=== PATIENT | male | born 1950 | race African-American/Black ===

== ENCOUNTER 2018-05-13 13:39 | Emergency (ER) | payer SELFPAY ==
[~2018-05-13] VITALS: Ht 182.9 cm; Wt 122.9 kg
[2018-05-13 13:41] VITALS: BP 145/81
== END 2018-05-13 14:16 | disposition home or self-care (01) ==
LOC: ED 14:10
DX: E11.9 Type 2 diabetes mellitus without complications (principal); Z76.0 Encounter for issue of repeat prescription; Z79.4 Long term (current) use of insulin
CPT/HCPCS: 99283